=== PATIENT | female | born 1960 | race Caucasian/White ===

== ENCOUNTER 2024-01-15 11:41 | Emergency (ER) | payer BC, MEDICARE ==
[~2024-01-15] VITALS: Ht 165.1 cm; Wt 99.7 kg
[2024-01-15] MEDS ORDERED: MELO-335 PO (14:11)
[2024-01-15] MEDS ORDERED: ACET500T58 PO (14:11)
[2024-01-15] MEDS: HYDROcodone-ACET 5/325MG TAB PO ONE (14:19)
[2024-01-15 14:20] VITALS: BP 148/62; PULSE 89; RESP 16; TEMP 98; O2SAT 94
[2024-01-15] MEDS: KETOROLAC TROMETH 30 MG/ML 1ML VIAL IM ONE (14:20)
== END 2024-01-15 14:22 | disposition home or self-care (01) ==
LOC: ER 11:41
DX: S42.295A Other nondisplaced fracture of upper end of left humerus, initial encounter for closed fracture (principal); Z79.899 Other long term (current) drug therapy; W01.0XXA Fall on same level from slipping, tripping and stumbling without subsequent striking against object, initial encounter; Y93.89 Activity, other specified; Y92.89 Other specified places as the place of occurrence of the external cause; Y99.8 Other external cause status
CPT/HCPCS: 73030; 96372; 99283; J1885